=== PATIENT | male | born 1975 | race Caucasian/White ===

== ENCOUNTER 2016-06-07 16:45 | Emergency (ER) | payer OTHER ==
[~2016-06-07] VITALS: Wt 59.0 kg
[2016-06-07] MEDS ORDERED: KETOROLAC 30 MG INJ IM STA (19:34)
--- NOTE | 2016-06-07 20:35 | RADRPT ---
PROCEDURE: XR Cervical Spine. CLINICAL INDICATION: neck pain TECHNIQUE: AP, lateral and odontoid views of the cervical spine were performed. The images were re viewed on a PACS workstation. COMPARISON: None. FINDINGS: The vertebral body alignment, height and osseous mineralization are normal. Reversal of the normal c ervical lordosis and C5-C6 with disk space narrowing, anterior plate spurring and posterior spondyli tic ridging. 2 mm of retrolisthesis of C5 on C6. No fracture or subluxation. There is no facet arth ropathy. The uncovertebral joints are unremarkable. The intervertebral disc spaces are well maintain ed. There are no abnormal calcifications. The prevertebral soft tissues are normal. No radiopaque fo reign bodies are identified. IMPRESSION: 1. Degenerative disk and spondylitic changes of C5 and C6 with 1-2 mm of retrolisthesis of C5 on C6 with reversal of the normal cervical lordosis. No paraspinal soft tissue abnormality. RPTAT:AAJJ Physician Sharee Date Time Electronically viewed and signed by Physician Sharee on 06/07/2016 20:35 NADIA/
--- NOTE | 2016-06-07 20:36 | RADRPT ---
PROCEDURE: Thoracic spine x-ray CLINICAL INDICATION: Pain. TECHNIQUE: AP, lateral, and swimmers view of the thoracic spine. COMPARISON: None. FINDINGS: Marked dextroscoliosis of the mid to lower thoracic spine with apex at T9. No fracture or dislocati on. Vertebral bodies are normal in height, density, and alignment with preservation of disk intersp aces. The remaining visualized fascia structures are unremarkable. IMPRESSION: Marked dextroscoliosis of the thoracic spine. No fracture or dislocation. RPTAT:AAJJ Physician Sharee Date Time Electronically viewed and signed by Physician Sharee on 06/07/2016 20:36 NADIA/
--- NOTE | 2016-06-07 20:37 | RADRPT ---
PROCEDURE: XR Chest. CLINICAL INDICATION: Shortness of breath TECHNIQUE: AP portable chest. COMPARISON: None. FINDINGS: The cardiomediastinal silhouette is within normal limits of size ..The lungs are clear without pleur al effusion or focal consolidation. No pneumothorax. Dextroscoliosis of the lower thoracic spine.. IMPRESSION: 1. No evidence for active cardiopulmonary disease. RPTAT:AAJJ Michaelle Godwin Physician Date Time Electronically viewed and signed by Michaelle Godwin Physician on 06/07/2016 20:36 NADIA/
[2016-06-07] MEDS ORDERED: CYCL-319 PO (20:59)
[2016-06-07] MEDS ORDERED: IBUP400T22 PO (20:59)
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
[2016-06-07 21:20] VITALS: BP 115/87; PULSE 87; RESP 18; TEMP 98.2
== END 2016-06-07 21:21 | disposition home or self-care (01) ==
LOC: FTE 16:45 → EDBD 16:45 → FTE 21:21
DX: M54.2 Cervicalgia (principal); M54.6 Pain in thoracic spine; F17.210 Nicotine dependence, cigarettes, uncomplicated
CPT/HCPCS: 71010; 72040; 72072; 93005; 96372; J1885; Z7502

== ENCOUNTER 2016-06-20 11:38 | Emergency (ER) | payer OTHER ==
[~2016-06-20] VITALS: Wt 60.5 kg
[~2016-06-20 11:38] MED LIST: CYCL-319 PO; IBUP400T22 PO
[2016-06-20] MEDS ORDERED: TRAM50TA2 PO (12:30)
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
== END 2016-06-20 13:50 | disposition home or self-care (01) ==
LOC: FTE 11:38
DX: M54.6 Pain in thoracic spine (principal); F17.210 Nicotine dependence, cigarettes, uncomplicated
CPT/HCPCS: 99283

== ENCOUNTER 2016-12-05 18:17 | Emergency (ER) | payer OTHER ==
[~2016-12-05] VITALS: Ht 167.6 cm; Wt 72.5 kg
[~2016-12-05 18:17] MED LIST changes: +TRAM50TA2 PO
[2016-12-05 18:32] VITALS: Ht 167.6 cm; Wt 72.5 kg
[2016-12-05] MEDS ORDERED: ONDANSETRON (ODT) 4 MG TAB ODT STA (19:39)
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
[2016-12-05] MEDS ORDERED: morphine 10 MG INJ IM ONE (20:00)
[2016-12-05] MEDS ORDERED: DIAZEPAM 5 MG/ML SYG IM ONE (20:00)
--- NOTE | 2016-12-05 20:47 | RADRPT ---
PROCEDURE: CT Brain without. CLINICAL INDICATION: Head injury. TECHNIQUE: A CT of the brain was performed on multidetector high-resolution CT scanner utilizing a xial sections from the skull base through the vertex without contrast. The scan was reviewed in sof t tissue brain and high frequency resolution bone algorithm windows. Images were reviewed on a high -resolution PACS workstation. One or more the following does reduction techniques were utilized: Aut omated exposure control, adjustment of the mA/ or kV according to patient's size, or use of iterativ e reconstruction technique. The exam CTDI = 41.74 mGy and the DLP = 720.33 mGy-cm. COMPARISON: None available. FINDINGS: The ventricles and sulci are age-appropriate. There is no intracranial hemorrhage, mass effect or mi dline shift. No abnormal intra-axial or extra-axial fluid collections are seen. The banegas/white cassia er differentiation is preserved. No acute skull abnormality is noted. The visualized paranasal sinus es are essentially clear. IMPRESSION: 1. No acute intracranial hemorrhage, transcortical infarction or mass effect. RPTAT: HFN .Jody Pham MD, MD Date Time Electronically viewed and signed by .Jody Pham MD, MD on 12/05/2016 20:46 .N/
--- NOTE | 2016-12-05 20:55 | RADRPT ---
PROCEDURE: CT cervical spine without contrast CLINICAL INDICATION: Trauma. Neck pain. TECHNIQUE: CT scan of the cervical spine [facility] No [facility] contrast was administered. Coronal and sagittal reformatted images were obtained from th e axial source images. Images were reviewed on a high-resolution PACS workstation. One or more the f ollowing does reduction techniques were utilized: Automated exposure control, adjustment of the mA/ or kV according to patient's size, or use of iterative reconstruction technique. Exam CTDI = 22.19 m Gy and the DLP = 458.79 mGy-cm. COMPARISON: None available. FINDINGS: There is reversal of normal cervical lordosis centered at C4-C5. Alignment remains intact. No acut e fracture or dislocation is seen. The vertebral body heights are preserved. No mass, hematoma, or other soft tissue abnormality is seen. There are multilevel mild degenerative changes of the cervical spine, manifested by osteophytosis an d disc height narrowing, most prominent at C5-C6 and C6-C7. Uncovertebral osteophytes contributes to mild right and moderate left foraminal narrowing at C5-C6. Posterior disk osteophyte complexes contribute to mild spinal canal narrowing at C5-C6 and C6-C7. IMPRESSION: 1. There is reversal of normal cervical lordosis centered at C4-C5. 2. No acute fracture or traumatic subluxation. 3. Multilevel mild degenerative changes of the cervical spine, most prominent at C5-C6 and C6-C7. 4. Mild spinal canal narrowing at C5-C6 and C6-C7. Mild right and moderate left foraminal narrowing at C5-C6. RPTAT: HFN .Jody Pham MD, MD Date Time Electronically viewed and signed by .Jody Pham MD, MD on 12/05/2016 20:55 .N/
--- NOTE | 2016-12-05 21:05 | RADRPT ---
PROCEDURE: Ultrasound of the abdomen. CLINICAL INDICATION: Trauma TECHNIQUE: Sonographic images of the abdomen were performed to evaluate for free fluid. COMPARISON: No pertinent prior examinations were submitted for comparison. FINDINGS: Imaging of the 4 quadrants demonstrates no evidence of intra-abdominal free fluid. IMPRESSION: No intra-abdominal free fluid. RPTAT: HIKT .Dean Gu MD, MD Date Time Electronically viewed and signed by .Dean Gu MD, MD on 12/05/2016 21:04 .T/
--- NOTE | 2016-12-05 21:14 | RADRPT ---
PROCEDURE: CT Lumbar Spine. CLINICAL INDICATION: Low back pain TECHNIQUE: The study was performed on a multidetector CT scanner. Volumetric data was obtained th rough the lumbar spine and reformatted in the axial plane. Sagittal and coronal reformations were cr eated from the raw axial data. One or more the following does reduction techniques were utilized: Au tomated exposure control, adjustment of the mA/ or kV according to patient's size, or use of iterati ve reconstruction technique. The images were reviewed on a PACS workstation. CTDI 23.52 mGy. DLP 670.8 mGy-cm. COMPARISON: No prior studies are available for comparison. FINDINGS: There is maintenance of normal lumbar lordosis. No lumbar spine subluxation is noted. The vertebral body heights are preserved. There is no significant paravertebral soft tissues swelling or mass. T12-L1: The disk is normal in height. No significant disk bulge or protrusion is seen. The central canal and neural foramina appear adequately patent. L1-L2: The disk is normal in height. No significant disk bulge or protrusion is seen. The central c anal and neural foramina appear adequately patent. L2-L3: The disk is normal in height. No significant disk bulge or protrusion is seen. The central c anal and neural foramina appear adequately patent. L3-L4: The disk is normal in height. No significant disk bulge or protrusion is seen. The central c anal and neural foramina appear adequately patent. L4-L5: The disk is normal in height. There is 4-5 mm broad-based posterior disk protrusion. Mild b ilateral facet arthropathy is noted. Mild bilateral foraminal narrowing is noted. The central canal appears adequately patent. L5-S1: The disk is normal in height. There is 5 mm broad-based posterior disk protrusion. Mild [place] ateral facet arthropathy is noted. Mild bilateral foraminal narrowing is noted. The central canal a ppears adequately patent. IMPRESSION: 1. No acute lumbar spine fracture or subluxation. 2. Mild posterior disk protrusions at L4-5 and L5-S1 without significant spinal canal stenosis. 3. Mild bilateral foraminal narrowing at L4-5 and L5-S1. RPTAT: HFN .Jody Pham MD, MD Date Time Electronically viewed and signed by .Jody Pham MD, MD on 12/05/2016 21:14 .N/
[2016-12-05] MEDS ORDERED: ACET500C5 PO (21:24)
[2016-12-05] MEDS ORDERED: HYDR-906 PO (21:24)
[2016-12-05] MEDS ORDERED: DIAZ-90 PO (21:24)
[2016-12-05 21:37] LABS: URINE BLOOD (Dip) POC Negative (NEGATIVE)
[2016-12-05 21:40] VITALS: BP 126/82; PULSE 85; RESP 20; TEMP 98.8
== END 2016-12-05 21:41 | disposition home or self-care (01) ==
LOC: FTE 18:17
DX: S30.1XXA Contusion of abdominal wall, initial encounter (principal); S06.0X0A Concussion without loss of consciousness, initial encounter; S19.9XXA Unspecified injury of neck, initial encounter; V13.4XXA Pedal cycle driver injured in collision with car, pick-up truck or van in traffic accident, initial encounter; Z87.891 Personal history of nicotine dependence
CPT/HCPCS: 70450; 72125; 72131; 76700; 81003; 96372; J2270; J3360; Z7502; Z7610